=== PATIENT | female | born 1955 | race Caucasian/White ===

== ENCOUNTER 2023-07-24 20:08 | Emergency (ER) | payer MEDICARE, MEDICAID ==
[~2023-07-24] VITALS: Ht 152.4 cm; Wt 70.3 kg
[2023-07-24 20:08] VITALS: BP_SYST 123; PULSE 104; RESP 22; TEMP 98.4; O2SAT 96
[2023-07-24] MEDS: levETIRAcetam 1,000 MG in NS 90 ML IV ONE (20:59)
[2023-07-24 21:09] LABS: BASOPHILS % (AUTO) 0.5 % (0.0-2.0); EOSINOPHILS % (AUTO) 0.8 % (0.0-4.0); HEMATOCRIT 32.8 % (36-48); LYMPHOCYTES # (AUTO) 1.6 K/uL (1.0-5.5); LYMPHOCYTES % (AUTO) 30.8 % (20.5-51.5); MEAN CORPUSCULAR HEMOGLOBIN 30 pg (27-31); MEAN CORPUSCULAR HGB CONC 34 % (32-36); MEAN CORPUSCULAR VOLUME 90 fL (79.0-98.0); MONOCYTES # (AUTO) 0.7 K/uL (0.0-1.0); NEUTROPHILS # (AUTO) 2.8 K/uL (1.8-7.7); NEUTROPHILS % (AUTO) 54.9 % (40.0-70.0); PLATELET COUNT (AUTO) 211 K/uL (130-430); RED BLOOD CELL COUNT(AUTO) 3.66 MIL/uL (4.2-6.2); RED CELL DISTRIBUTION WIDTH 14.8 % (9.0-15.0); WHITE BLOOD COUNT (AUTO) 5.1 K/uL (4.8-10.8)
[2023-07-24 21:24] LABS: CALCIUM 8.5 mg/dL (8.4-11.0); CREATININE 0.57 mg/dL (0.55-1.30); POTASSIUM 4.1 mmol/L (3.5-5.1)
[2023-07-24 21:51] LABS: BARBITURATE, URINE NEGATIVE (NEG <=200); BENZODIAZEPINE, URINE NEGATIVE (NEG <=150); CANNABINOID, URINE NEGATIVE (NEG <=50); COCAINE, URINE NEGATIVE (NEG <=150); METHAMPHETAMINES SCREEN,URINE NEGATIVE (NEG <=500); OPIATE, URINE NEGATIVE (NEG <=100); PHENCYCLIDINE SCREEN,URINE NEGATIVE (NEG <=25); UR TRICYCLIC ANTIDEPRESSANTS NEGATIVE (NEG <=300); URINE AMPHETAMINE NEGATIVE (NEG <=500); URINE METHADONE NEGATIVE (NEG <=200); URINE OXYCODONE SCREEN NEGATIVE (NEG <=100)
[2023-07-25 02:00] VITALS: BP_SYST 127; PULSE 95; RESP 19; TEMP 98; O2SAT 96
== END 2023-07-25 01:57 | disposition short-term general hospital (02) ==
LOC: SED 20:08
DX: R56.9 Unspecified convulsions (principal); Z88.3 Allergy status to other anti-infective agents; G93.40 Encephalopathy, unspecified; Z20.822 Contact with and (suspected) exposure to COVID-19
CPT/HCPCS: 80307; 80048; 85025; 36415; 71045; 70450; 99285; 96365; 87426; J1953

== ENCOUNTER 2023-12-14 13:08 | Emergency (ER) | payer MEDICARE, OTHER ==
[~2023-12-14] VITALS: Ht 154.9 cm; Wt 59.0 kg
[2023-12-14 13:15] VITALS: BP_SYST 121; PULSE 67; RESP 18; TEMP 98.3; O2SAT 98
[2023-12-14] MEDS ORDERED: ACETAMINOPHEN 500 MG TABLET ONE (14:24)
[2023-12-14] MEDS ORDERED: NALOXONE HCL 0.4 MG/ML AMP (NARCAN) IVP PRN (14:30)
[2023-12-14] MEDS: ACETAMINOPHEN/CODEINE 300 MG-30 MG TABLET PO ONE (14:34)
[2023-12-14] MEDS: ACETAMINOPHEN 500 MG TABLET PO ONE (14:59)
== END 2023-12-14 14:20 | disposition home or self-care (01) ==
LOC: SED 13:08
DX: S52.592A Other fractures of lower end of left radius, initial encounter for closed fracture (principal); E11.9 Type 2 diabetes mellitus without complications; I10 Essential (primary) hypertension; Z85.9 Personal history of malignant neoplasm, unspecified; Z91.041 Radiographic dye allergy status; W01.0XXA Fall on same level from slipping, tripping and stumbling without subsequent striking against object, initial encounter; Y93.89 Activity, other specified; Y92.89 Other specified places as the place of occurrence of the external cause; Y99.8 Other external cause status
CPT/HCPCS: 71250-TC; 99284